=== PATIENT | male | born 1985 | race Caucasian/White ===

== ENCOUNTER 2025-03-18 16:06 | Emergency (ER) | payer OTHER, SELFPAY ==
--- OUTSIDE RECORDS SUMMARY | 2025-03-18 16:13 | XMS_ITS | Clinical Summary ---
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 Phone Unavailable Primary Care Provider Unavailabl e Social History Tobacco UseTypesPacks/DayYears UsedDateSmoking Tobacco: Never AssessedSex and Gender InformationValueDate RecordedSex Assigned at BirthNot on fileLegal Sex Male08/06/2022 6:56 PM EDTGender IdentityNot on fileSexual OrientationNot on file Last Filed Vital Signs Vital SignReadingTime TakenCommentsBlood Nedorbnf769/8208/11/2017 12:00 PM EDT Pulse--Temperature--Respiratory Rate--Oxygen Saturation--Inhaled Oxygen Concentration--Vcyoup029 kg (258 lb)08/11/2017 12:00 PM CRWLikipv704.9 cm (6') 08/11/2017 12:00 PM EDTBody Mass Index34.9908/11/2017 12:00 PM EDT Plan of Treatment Not on file
--- OUTSIDE RECORDS SUMMARY | 2025-03-18 16:13 | XMS_ITS | Clinical Summary ---
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 Role Phone Kev Franks DO Primary Care Provider [phone] Allergies No known active allergies Medications No known medications Immunizations ImmunizationAdministration DatesNext DueTDaP, ADACEL (age 10y-64y), BOOSTRIX (age 10y+), IM, 0.5mL10/15/2019 Social History Tobacco UseTypesPacks/DayYears UsedDateSmoking Tobacco: Never AssessedSmokeless Tobacco: NeverSex and Gender InformationValueDate RecordedSex Assigned at Not on fileLegal XsoRjtd4307/04/2012 3:31 PM ESTGender IdentityNot on fileSexual OrientationNot on file Last Filed Vital Signs Vital SignReadingTime TakenCommentsBlood Khqwinup272/9110/15/2019 11:54 AM EDT Artah719510/15/2019 11:53 AM MJCDmdaestbhba49.8 ??C (98.3 ??F)10/15/2019 11:53 AM EDTRespiratory Ndds531110/15/2019 11:54 AM EDTOxygen Gkavnewbiy02%10/15/2019 11:54 AM EDTInhaled Oxygen Concentration--Weight--Height--Body Mass Index-- Plan of Treatment Not on file Insurance * Guarantor: Alvarez HickmanAccount TypeRelation to PatientDate of BirthPhoneBilling AddressPersonal/PnppebUrbz1985 [address] [place] [address] Care Teams Team MemberRelationshipSpecialtyStart DateEnd Date Kev Franks DO PCP - GeneralInternal Medicine10/15/19
--- OUTSIDE RECORDS SUMMARY | 2025-03-18 16:13 | XMS_ITS | Clinical Summary ---
Author Organization [facility] Address [address] 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 Name Role Phone Unavailable Primary Care Provider Unavailabl e Social History Tobacco UseTypesPacks/DayYears UsedDateSmoking Tobacco: Never AssessedSex and Gender InformationValueDate RecordedSex Assigned at BirthNot on fileLegal Sex Male07/20/2023 7:09 AM ESTGender IdentityNot on fileSexual OrientationNot on file Plan of Treatment Health MaintenanceDue DateLast DoneCommentsHIV Rmcpsnnca1986Lipid Panel 1986Yearly Adult Llujrjxc1986MMR Vaccines (1 of 1 - Standard series) 1987Hepatitis C Vkuivnzmv71/03/2004Hepatitis B Vaccines (1 of 3 - 19+ 3- dose series)2005DTaP/Tdap/Td Vaccines (1 - Tdap)02/25/2008HPV Vaccines (1 - 3-dose standard series)2013Influenza Vaccine (#1)5COVID-19 Vaccine (1 - season)2025Zoster Vaccines (1 of 2)02/25/2036HIB VaccinesAged OutNo longer eligible based on patient's age to complete this topic Hepatitis A VaccinesAged OutNo longer eligible based on patient's age to complete this topicIPV VaccinesAged OutNo longer eligible based on patient's age to complete this topicMeningococcal VaccineAged OutNo longer eligible based on patient's age to complete this topicPneumococcal Vaccine: Pediatrics and At-Risk Adult PatientsAged OutNo longer eligible based on patient's age to complete this topicRotavirus VaccinesAged OutNo longer eligible based on patient's age to complete this topic Insurance * Guarantor: Alvarez HickmanAccount TypeRelation to PatientDate of BirthPhoneBilling AddressPersonal/XrgixoVbgs30 [address] [place] [address] MemberSubscriberPlan / Payer (Effective 2023-Present)Name:Alvarez Hickman Relation to Subscriber:SpouseName:ESPINOZA HICKMAN Date of :1988 Address: [address] [place] [address] Payer ID:Not on file Type:Not on file Address: [address] [place] [phone] * Guarantor: Alvarez HickmanAccount TypeRelation to PatientDate of BirthPhoneBilling AddressPersonal/GnmkdqUsjb80 [address] [place] [address] MemberSubscriberPlan / Payer (Effective 2023-Present)Name:Alvarez Hickman Relation to Subscriber:SpouseName:ESPINOZA HICKMAN Date of :1988 Address: [address] [place] [address] Payer ID:Not on file Type:Not on file Address: [address] [place] [phone]
--- OUTSIDE RECORDS SUMMARY | 2025-03-18 16:13 | XMS_ITS | Clinical Summary ---
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
[2025-03-18 16:16] VITALS: BP 149/94; PULSE 103; O2SAT 99; BMI 32.7
--- NOTE | 2025-03-18 16:34 | ED.GENADUL1 ---
HPI HPI - General Adult General Chief complaint: Skin/Abscess/Foreign Body Stated complaint: Laceration Time Seen by Provider: 03/18/25 16:08 Source: patient Mode of arrival: walk-in History of Present Illness HPI narrative: Patient presents to the emergency department with a laceration to the left upper lip that occurred when he excellently struck himself in the face with needle-nose pliers. Patient states he was trying to pull apart out of the machine and the pliers slipped, striking him in the face. Patient denies any headache, dizziness, visual disturbances, nasal pain or epistaxis, dental fractures, sore throat or difficulty swallowing. Bleeding controlled on emergency department arrival. Patient unsure when his last tetanus shot was Onset (ago): minute(s) (Just APRON MAN) Location: Reports mouth (Upper lip) Severity: mild Pain Consistency: Reports constant Related Data Previous Rx's ?Medication ?Instructions ?Recorded amoxicillin 500 mg capsule 500 mg PO TID #21 caps 03/18/25 Allergies Allergy/AdvReac Type Severity Reaction Status Date / Time No Known Drug Allergies Allergy Verified 03/18/25 16:15 Review of Systems ROS Constitutional Denies: fever or chills Neurological Denies: headache PFSH PFSH Social History Little interest or pleasure in doing things: not at all Feeling down, depressed, or hopeless: not at all Exam Constitutional Vital Signs, click to edit/add: Last Vital Signs Pulse 103 H 03/18/25 16:16 Resp 18 03/18/25 16:16 BP 149/94 H 03/18/25 16:16 Pulse Ox 99 03/18/25 16:16 Common normals: no apparent distress, average body habitus, oriented x3 and no limitations General appearance: cooperative [facility] Common normals: normocephalic Mouth: oral and palatal mucosa normal, tongue normal and mouth trauma (1 cm laceration vertically midline of the upper lip, no vermilion border ) Teeth and gingiva: tooth & associated gingiva not abnormal Respiratory Common normals: normal respiratory effort Cardio Common normals: regular rate and regular rhythm Neuro Common normals: oriented x3, moves all extremities and no focal motor deficits Course Vital Signs Vital signs: Vital Signs Pulse Rate 103 H 03/18/25 16:16 Respiratory Rate 18 03/18/25 16:16 Blood Pressure 149/94 H 03/18/25 16:16 Pulse Oximetry 99 03/18/25 16:16 Pulse Rate 103 H 03/18/25 16:16 Respiratory Rate 18 03/18/25 16:16 Blood Pressure 149/94 H 03/18/25 16:16 Pulse Oximetry 99 03/18/25 16:16 Medical Decision Making MDM Narrative Medical decision making narrative: Patient presented to the emergency department with a laceration of the upper lip. There is no vermilion border involvement. Tetanus shot was updated. Laceration was combined LAC plus puncture as the needle-nose pliers did push through to the anterior tissue of the upper lip though there was no active bleeding or suturable region to the anterior. Wound was extensively cleaned and irrigated and closed as listed above. Patient will be treated with oral antibiotics, soft diet and close PCP follow-up Discharge Plan Discharge Chief Complaint: Skin/Abscess/Foreign Body Clinical Impression: Laceration Patient Disposition: Home, Self-Care Time of Disposition Decision: 16:42 Condition: Good Mode of Transportation: Private Vehicle Prescriptions / Home Meds: New amoxicillin 500 mg capsule 500 mg PO TID Qty: 21 0RF Print Language: [place] Instructions: Facial Laceration (ED) Referrals: Kev Franks DO [Primary Care Provider, Internal Medicine] - 1 week Discharge Date/Time: 03/18/25 16:56 Procedures ED Laceration Laceration Laceration 1: Site: lip (1 cm vertical midline upper lip no vermilion border involvement) Size (cm): 1 Description: linear and clean Depth: simple, single layer Anesthetic used: with epi Anesthesia technique: local infiltration Amount (ml): 1 Pre-repair: wound explored and irrigated extensively Skin layer closed with: Vicryl Size (cm): 5-0 Number of sutures: 1 Technique: simple, interrupted
[2025-03-18] MEDS: AMOXICILLIN 500 MG CAPSULE PO (16:50)
[2025-03-18] MEDS: BACITRACIN 0.9 GM PACKET 1 PACKET TOPICAL (16:52)
== END 2025-03-18 16:56 | disposition home or self-care (01) ==
PROVIDERS: Emergency Provider Student in an Organized Health Care Education/Training Program; PCP Internal Medicine
DX: S01.511A Laceration without foreign body of lip, initial encounter (principal); W22.8XXA Striking against or struck by other objects, initial encounter
CPT/HCPCS: 12011; 99283

== ENCOUNTER 2025-05-03 17:57 | Emergency (ER) | payer OTHER, SELFPAY ==
[2025-05-03 18:02] VITALS: BP 123/80; PULSE 132; TEMP 37; O2SAT 96; BMI 32.7
--- NOTE | 2025-05-03 18:19 | ED.GENADUL1 ---
HPI HPI - General Adult General Chief complaint: Fever Stated complaint: FEVER Time Seen by Provider: 05/03/25 18:12 Source: patient Mode of arrival: walk-in History of Present Illness HPI narrative: 40 year old male presents to the ED for a fever, body aches, sore throat. Onset was this morning. Reports sinus congestion for 2 weeks. Denies SOB, emesis, diarrhea. Reports nausea. Two of his children are taking antibiotics for pharyngitis. Related Data Allergies Allergy/AdvReac Type Severity Reaction Status Date / Time No Known Drug Allergies Allergy Verified 05/03/25 18:01 Opioid HPI Opioid Management Most Recent Opioid Data: Last Pain Scale 4 Today, 18:02 Review of Systems ROS Constitutional Reports: fever, chills and fatigue Ears, nose, mouth, and throat Reports: throat pain; Denies: neck pain Cardiovascular Denies: chest pain Respiratory Reports: cough; Denies: shortness of breath Gastrointestinal Reports: nausea; Denies: abdominal pain, vomiting or diarrhea Genitourinary Denies: painful urination Musculoskeletal Reports: back pain and extremity pain Integumentary/Breast Denies: rash Neurological Denies: headache or dizziness PFSH PFSH Social History Little interest or pleasure in doing things: not at all Feeling down, depressed, or hopeless: not at all Exam Constitutional Vital Signs, click to edit/add: Last Vital Signs Temp 98.6 F 05/03/25 18:02 Pulse 99 H 05/03/25 20:19 Resp 18 05/03/25 18:02 BP 123/80 05/03/25 18:02 Pulse Ox 98 05/03/25 20:19 O2 Del Method Room Air 05/03/25 18:02 Common normals: no apparent distress and oriented x3 General appearance: cooperative HENMT Common normals: external ears normal, EACs normal, TMs normal bilaterally, moist oral mucous membranes and oropharynx normal Eye Common normals: conjunctivae normal and no scleral icterus Neck & C-Spine Common normals: supple Chest Chest: symmetrical chest wall rise Respiratory Common normals: normal respiratory effort and clear to auscultation bilaterally Effort & inspection: able to speak in complete sentences and symmetric chest movement Cardio Common normals: regular rhythm Rate: tachycardic Neuro Common normals: oriented x3, CN's II-XII intact bilaterally and moves all extremities Sensorium/orientation: awake and alert Course Vital Signs Vital signs: Vital Signs Temperature 98.6 F 05/03/25 18:02 Pulse Rate 132 H 05/03/25 18:02 Respiratory Rate 18 05/03/25 18:02 Blood Pressure 123/80 05/03/25 18:02 Pulse Oximetry 96 05/03/25 18:02 Oxygen Delivery Method Room Air 05/03/25 18:02 Temperature 98.6 F 05/03/25 18:02 Pulse Rate 99 H 05/03/25 20:19 Respiratory Rate 18 05/03/25 18:02 Blood Pressure 123/80 05/03/25 18:02 Pulse Oximetry 98 05/03/25 20:19 Oxygen Delivery Method Room Air 05/03/25 18:02 Medical Decision Making MDM Narrative Medical decision making narrative: The patient took Motrin at 1530 today and 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 He tested negative for Covid-19, strep, and influenza. These findings were discussed with the patient. His HR remained elevated at 120. Additional testing was ordered. He was in agreement with IV fluids and lab work. He refused a chest x-ray. WBC count was 12.1. His HR improved with IV fluids. Findings were discussed. He was comfortable being discharged home. Follow up with pcp for a recheck, further evaluation and treatment. Return to the ED for worsening symptoms. Medical Records Medical records reviewed: Yes I reviewed the patient's medical records Lab Data Lab results reviewed: Yes I reviewed the patient's lab results Labs: Lab Results 05/03/25 05/03/25 05/03/25 Range/Units 18:30 19:09 20:20 WBC 12.1 H (4.0-11.0) 10^3/uL RBC 5.49 (4.70-6.10) 10^6/uL Hgb 18.1 H (14.0-18.0) g/dL Hct 50.6 (42.0-54.0) % MCV 92.2 (80.0-94.0) fL MCH 33.0 (25.9-34.0) pg MCHC 35.8 H (29.9-35.2) g/dL RDW 11.4 (11.0-15.0) % Plt Count 279 (150-450) 10^3/uL MPV 9.9 (9.5-13.5) fL Seg Neuts % (Manual) 92.0 H (43.0-75.0) Lymphocytes % (Manual) 3.0 L (20.5-60.0) % Monocytes % (Manual) 4.0 (1.7-12.0) % Eosinophils % (Manual) 1.0 (0.9-7.0) % Basophils % (Manual) 0.0 L (0.2-2.0) % Neutrophils # (Manual) 11.13 H (1.4-6.5) 10^3/uL Lymphocytes # (Manual) 0.36 L (1.20-3.80) 10^3/uL Monocytes # (Manual) 0.48 (0.30-0.80) 10^3/uL Eosinophils # (Manual) 0.12 (0.00-0.70) 10^3/uL Basophils # (Manual) 0.00 (0.00-0.10) 10^3/uL Sodium 136 (136-145) mmol/L Potassium 3.9 (3.5-5.1) mmol/L Chloride 104 (98-107) mmol/L Carbon Dioxide 24.2 (21.0-32.0) mmol/L Anion Gap 11.7 BUN 19.0 H (7.0-18.0) mg/dL Creatinine 1.33 H (0.70-1.30) mg/dL Est GFR ( Amer) >60 (>=60 mL/min/1.73m^2) Est GFR (Non-Af Amer) 60 (>=60 mL/min/1.73m^2) BUN/Creatinine Ratio 14.3 Glucose 115 H (74-106) mg/dL Calcium 8.3 L (8.5-10.1) mg/dL Total Bilirubin 0.9 (0.2-1.0) mg/dL AST 37 (15-37) U/L ALT 66 H (16-63) U/L Alkaline Phosphatase 94 (46-116) U/L Total Protein 7.0 (6.4-8.2) g/dL Albumin 3.8 (3.4-5.0) g/dL Globulin 3.2 g/dL Albumin/Globulin Ratio 1.2 Urine Color Yellow (YELLOW) Urine Clarity Clear (CLEAR) Urine pH 6.5 (5.0-9.0) Ur Specific [place] 1.025 (1.005-1.025) Urine Protein 30 A (NEG/TRACE) mg/dL Urine Glucose (UA) Negative (NEGATIVE) mg/dL Urine Ketones Negative (NEGATIVE) mg/dL Urine Occult Blood Negative (NEGATIVE) Urine Nitrite Negative (NEGATIVE) Urine Bilirubin Negative (NEGATIVE) Urine Urobilinogen 1.0 (0.2-1.0) EU/dL Ur Leukocyte Esterase Negative (NEGATIVE) Urine RBC 0-2 (0-2) #/HPF Urine WBC 0-2 A (NONE SEEN) #/HPF Ur Squamous Epith Cells Rare (NONE/RARE) #/LPF Urine Crystals None seen (None Seen) #/HPF Urine Bacteria None seen (NONE SEEN) #/HPF Urine Casts None seen (NONE SEEN) #/LPF Urine Mucus Large A (NONE SEEN) Ur Culture Indicated? No Influenza Type A Ag Negative Influenza Type B Ag Negative SARS-CoV-2 Ag (CV2AG) Negative (NEGATIVE) Streptococcus Screen Negative Discharge Plan Discharge Chief Complaint: Fever Clinical Impression: Viral infection, Fever Patient Disposition: Home, Self-Care Time of Disposition Decision: 20:34 Condition: Good Mode of Transportation: Private Vehicle Print Language: Faroese Instructions: Fever in Adults (ED), Viral Syndrome (ED) Additional Instructions: Return to the ED for worsening symptoms. Referrals: Kev Franks DO [Primary Care Provider, Internal Medicine] - 1 week
[2025-05-03 18:51] LABS: SARS-CoV-2 Ag NEGATIVE (NEGATIVE)
[2025-05-03] MEDS: 0.9 % SODIUM CHLORIDE 1,000 ML 1000 ML IV (19:18)
[2025-05-03 19:25] LABS: Hematocrit 50.6 % (42.0-54.0); Hemoglobin 18.1 g/dL (14.0-18.0); Mean Corpuscular HGB Conc 35.8 g/dL (29.9-35.2); Mean Corpuscular Hemoglobin 33.0 pg (25.9-34.0); Mean Corpuscular Volume 92.2 fL (80.0-94.0); Platelet Count 279 10^3/uL (150-450); Red Blood Count 5.49 10^6/uL (4.70-6.10); White Blood Count 12.1 10^3/uL (4.0-11.0)
[2025-05-03 19:38] LABS: Alanine Aminotransferase 66 U/L (16-63); Albumin Globulin Ratio 1.2; Albumin Level 3.8 g/dL (3.4-5.0); Alkaline Phosphatase 94 U/L (46-116); Anion Gap 11.7; Aspartate Amino Transferase 37 U/L (15-37); Blood Urea Nitrogen 19.0 mg/dL (7.0-18.0); Calcium 8.3 mg/dL (8.5-10.1); Carbon Dioxide 24.2 mmol/L (21.0-32.0); Chloride 104 mmol/L (98-107); Estimated GFR (African America >60 (>=60 mL/min/1.73m^2); Estimated GFR (Non-African Ame 60 (>=60 mL/min/1.73m^2); Globulin 3.2 g/dL; Glucose 115 mg/dL (74-106); Potassium 3.9 mmol/L (3.5-5.1); Sodium 136 mmol/L (136-145); Total Protein 7.0 g/dL (6.4-8.2)
[2025-05-03 19:49] LABS: Basophils Abs Manual 0.00 10^3/uL (0.00-0.10); Basophils Percent Manual 0.0 % (0.2-2.0); Eosinophils Absolute Manual 0.12 10^3/uL (0.00-0.70); Eosinophils Percent Manual 1.0 % (0.9-7.0); Lymphocytes Absolute Manual 0.36 10^3/uL (1.20-3.80); Lymphocytes Percent Manual 3.0 % (20.5-60.0); Monocytes Absolute Manual 0.48 10^3/uL (0.30-0.80); Monocytes Percent Manual 4.0 % (1.7-12.0); Segmented Neut Absolute Manual 11.13 10^3/uL (1.4-6.5); Segmented Neutrophils % Manual 92.0 (43.0-75.0)
[2025-05-03 20:19] VITALS: PULSE 99; O2SAT 98
[2025-05-03 20:26] LABS: Glucose Urine UA NEGATIVE (NEGATIVE)
[2025-05-03 20:33] LABS: Cast Seen? NONE SEEN #/LPF (NONE SEEN); Crystals Seen? None Seen #/HPF (None Seen)
[2025-05-03 20:34] LABS: Urine Culture Indicated NO
[2025-05-03 20:38] VITALS: TEMP 36.9
== END 2025-05-03 20:38 | disposition home or self-care (01) ==
PROVIDERS: Nurse Practitioner Family; Student in an Organized Health Care Education/Training Program; Emergency Provider Emergency Medicine; PCP Internal Medicine
DX: R50.9 Fever, unspecified (principal); B34.9 Viral infection, unspecified
CPT/HCPCS: 36415; 80053; 81001; 85007; 85027; 87070; 87804; 87811; 87880; 99283